=== PATIENT | male | born 1970 | race Caucasian/White ===

== ENCOUNTER 2020-12-14 13:06 | Emergency (ER) | payer SELFPAY ==
[2020-12-14 13:07] VITALS: BP 147/95; PULSE 91; RESP 166; TEMP 36.6; O2SAT 98; BMI 27.4
--- NOTE | 2020-12-14 13:21 | XR_ITS ---
PROCEDURE: XR SHOULDER RT MIN 2V CLINICAL INDICATION: PAIN COMPARISON: No exams were available for comparison FINDINGS: No fracture or dislocation. No lytic or blastic change. There is normal mineralization. There are mild osteoarthritic changes the acromioclavicular joint. The glenohumeral joint has an unremarkable appearance. Other findings:None. IMPRESSION: No acute findings. Dictated by: Chuy Rincon MD 12/14/2020 16:44 Chuy Rincon MD in [place] 12/14/2020 16:44
--- NOTE | 2020-12-14 13:25 | [facility].EDGENADL ---
ED Disposition Clinical Impression: Right shoulder injury Qualifiers: Encounter type: initial encounter Qualified Code(s): S49.91XA - Unspecified injury of right shoulder and upper arm, initial encounter AC separation Qualifiers: Encounter type: initial encounter Laterality: right Qualified Code(s): S43.101A - Unspecified dislocation of right acromioclavicular joint, initial encounter Disposition: Home, Self-Care Condition on Discharge: Good Instructions: DI for Shoulder Instability, DI for Shoulder Pain, DI for AC Joint Separation Additional Instructions: You have been evaluated for right shoulder injury. Diagnosed with an AC separation. Please take Tylenol and ibuprofen. Wear a sling for comfort. Follow-up with your primary care doctor. You may need to see orthopedics if symptoms not improved. Return to the emergency department for any new or worsening symptoms, numbness or weakness in your hand. Prescriptions: Ibuprofen [Ibuprofen 600mg Tablet] 600 mg PO Q6 #12 tab Transmission Status: Pending to [id number] Referrals: Ashley Ricci [Primary Care Provider] - Forms: Work/School Release Time of Disposition: 15:00 - Critical Care Critical Care Time: No Attestation: On , the high probability of a clinically significant, sudden or life threatening deterioration of the following system(s) required my full and direct attention, intervention and personal management. The time I documented below is in addition to time spent performing reported procedures but includes the following listed in this critical care notation. Medical Decision Making - Medical Records Medical records reviewed: Yes: I reviewed the patient's medical records. - Raghu Inquiry Pt receiving controlled substance: No Vital Signs: 12/14/20 13:07 12/14/20 13:30 12/14/20 14:00 Temperature 98 F Temperature Source Oral Pulse Rate 83 79 Pulse Rate [Radial] 91 H Respiratory Rate 166 H Blood Pressure 98/70 L 136/84 Blood Pressure [Right Arm] 147/95 H Blood Pressure Mean 79 101 Blood Pressure Mean [Right Arm] 112 Blood Pressure Position [Right Arm] Sitting 02 Sat by Pulse Oximetry 98 98 95 Oxygen Delivery Method Room Air 12/14/20 14:30 Temperature Temperature Source Pulse Rate 86 Pulse Rate [Radial] Respiratory Rate Blood Pressure 123/77 Blood Pressure [Right Arm] Blood Pressure Mean 100 Blood Pressure Mean [Right Arm] Blood Pressure Position [Right Arm] 02 Sat by Pulse Oximetry 94 L Oxygen Delivery Method Orders (Tests/Meds): ED MEDICATIONS Discontinued Medications Generic Name Dose Route Start Last Admin Trade Name Jarenq PRN Reason Stop Dose Admin Ketorolac Tromethamine 15 mg 12/14/20 13:26 12/14/20 13:32 Ketorolac 30mg/Ml Vial IM 12/14/20 13:27 15 mg ONCE ONE Administration Ondansetron HCl 4 mg 12/14/20 13:26 12/14/20 13:32 Ondansetron 4mg Odt SL 12/14/20 13:27 4 mg ONCE ONE Administration ORDERS Category Date Time Status XR shoulder RT min 2V Stat Exams 12/14/20 13:21 Taken Medical Decision Narrative: In summary this is a 50-year-old male with history of a left shoulder dislocation presenting to the emergency department with right shoulder pain. Patient clinically stable on arrival. Vital signs within normal limits. Physical exam shows tenderness to palpation on the posterior aspect of the shoulder. No palpable step-offs or deformities. Concern for ligamentous injury, sprain, strain, AC separation. Doubt fracture or acute dislocation, but cannot exclude. Will obtain x-rays of the right shoulder. Patient given 15 mg IM Toradol and 4 mg Zofran ODT for nausea X-rays show no fracture or dislocation. Possibly low-grade AC separation. Patient placed into a sling for comfort. Counseled on anti-inflammatories. Given referral to orthopedics for follow-up. Given return precautions. Stable for discharge. General Adult HPI - General
[2020-12-14 13:30] VITALS: BP 98/70; PULSE 83; O2SAT 98
[2020-12-14 14:00] VITALS: BP 136/84; PULSE 79; O2SAT 95
[2020-12-14 14:30] VITALS: BP 123/77; PULSE 86; O2SAT 94
[2020-12-14 15:14] VITALS: BP 142/75; PULSE 78; RESP 18; TEMP 36.6; O2SAT 98
--- NOTE | 2020-12-14 15:17 | PC.NURSE ---
SLING APPLIED TO RT SHOULDER
== END 2020-12-14 15:20 | disposition home or self-care (01) ==
PROVIDERS: Emergency Provider Emergency Medicine; PCP Nurse Practitioner Family
DX: S43.101A Unspecified dislocation of right acromioclavicular joint, initial encounter (principal); X50.0XXA Overexertion from strenuous movement or load, initial encounter; Y92.89 Other specified places as the place of occurrence of the external cause; Y99.0 Civilian activity done for income or pay
CPT/HCPCS: 73030; 96372; 99282